=== PATIENT | male | born 1995 | race Caucasian/White ===

== ENCOUNTER 2018-11-20 22:40 | Emergency (ER) | payer BC, OTHER ==
[~2018-11-20] VITALS: Ht 188 cm; Wt 87.5 kg
[~2018-11-20 22:40] MED LIST: CLON0.1T PO; DULO60CA45 PO; GABA300C PO; HYDR-4354 PO; LORA-258 PO
[2018-11-20 22:45] VITALS: BP 102/62
--- NOTE | 2018-11-20 23:07 | NUR ---
PT CAME IN FOR EVAL, S/P GLF, PLACED ON ER BED 2, SEEN AND EVAL DONE BY ER MD JOHNSON, PT COMBATIVE WITH THUY HELD WITH RT HAND, CURSE WORDS USED BY PT, NONCOMPLIANT, WITH CARE, DECIDED TO WALK OUT WITHOUT SIGNING ANY MEDICAL DOCUMENTS REFUSING CARE.
== END 2018-11-20 23:13 | disposition home or self-care (01) ==
LOC: ER 22:41
DX: S61.512A Laceration without foreign body of left wrist, initial encounter (principal); G89.29 Other chronic pain; M54.9 Dorsalgia, unspecified; Z76.5 Malingerer [conscious simulation]; M54.2 Cervicalgia; Z98.890 Other specified postprocedural states; Z79.899 Other long term (current) drug therapy; W19.XXXA Unspecified fall, initial encounter; Y93.89 Activity, other specified; Y92.89 Other specified places as the place of occurrence of the external cause; Y99.8 Other external cause status

== ENCOUNTER 2024-10-07 02:21 | Emergency (ER) | payer BC, OTHER ==
[~2024-10-07] VITALS: Ht 188 cm; Wt 79.4 kg
[2024-10-07 02:44] VITALS: BP 148/79; TEMP 99.1; O2SAT 98
== END 2024-10-07 04:20 | disposition left against medical advice (07) ==
LOC: ER 02:34
DX: S09.90XA Unspecified injury of head, initial encounter (principal); G24.01 Drug induced subacute dyskinesia; Z76.5 Malingerer [conscious simulation]; Z79.899 Other long term (current) drug therapy; Z86.711 Personal history of pulmonary embolism; Z98.890 Other specified postprocedural states; Z86.69 Personal history of other diseases of the nervous system and sense organs; Z87.39 Personal history of other diseases of the musculoskeletal system and connective tissue; W18.39XA Other fall on same level, initial encounter; Y93.89 Activity, other specified; Y92.89 Other specified places as the place of occurrence of the external cause; Y99.8 Other external cause status

== ENCOUNTER 2024-10-28 22:31 | Emergency (ER) | payer BC, OTHER ==
[~2024-10-28] VITALS: Ht 188 cm; Wt 81.6 kg
[2024-10-29 00:22] VITALS: BP 112/70; TEMP 97.8; O2SAT 99
== END 2024-10-29 00:23 | disposition home or self-care (01) ==
LOC: ER 22:35
DX: G40.909 Epilepsy, unspecified, not intractable, without status epilepticus (principal); G24.01 Drug induced subacute dyskinesia; G89.29 Other chronic pain; Z79.899 Other long term (current) drug therapy; Z86.711 Personal history of pulmonary embolism; Z98.890 Other specified postprocedural states
CPT/HCPCS: 73030-TC

== ENCOUNTER 2024-10-29 00:59 | Emergency (ER) | payer BC, OTHER ==
[~2024-10-29] VITALS: Ht 175.3 cm; Wt 72.6 kg
[2024-10-29 01:02] VITALS: BP 158/92; TEMP 97.8; O2SAT 99
== END 2024-10-29 01:11 | disposition home or self-care (01) ==
LOC: ER 01:08
DX: R56.9 Unspecified convulsions (principal); Z76.5 Malingerer [conscious simulation]; Z79.899 Other long term (current) drug therapy; Z86.711 Personal history of pulmonary embolism; Z98.890 Other specified postprocedural states